=== PATIENT | male | born 1935 | race Caucasian/White ===

== ENCOUNTER → 2019-02-20 07:58 | Outpatient (CLI) | payer OTHER | END | disposition home or self-care (01) | LOC: LAB 07:58 | DX: B96.89 Other specified bacterial agents as the cause of diseases classified elsewhere (principal); D53.8 Other specified nutritional anemias; I11.0 Hypertensive heart disease with heart failure; N36.2 Urethral caruncle; N39.0 Urinary tract infection, site not specified; E04.0 Nontoxic diffuse goiter; E78.2 Mixed hyperlipidemia; E11.9 Type 2 diabetes mellitus without complications; I11.9 Hypertensive heart disease without heart failure; R97.20 Elevated prostate specific antigen [PSA] ==

== ENCOUNTER 2019-07-07 07:20 | Outpatient (CLI) | payer OTHER | END 2019-07-07 11:09 | disposition home or self-care (01) | LOC: SONOGRAMA 07:20 | DX: R97.20 Elevated prostate specific antigen [PSA] (principal) ==

== ENCOUNTER → 2019-11-04 | Outpatient (CLI) | payer OTHER | END | disposition home or self-care (01) | LOC: RAD 13:13 | DX: J44.9 Chronic obstructive pulmonary disease, unspecified (principal); M12.88 Other specific arthropathies, not elsewhere classified, other specified site ==

== ENCOUNTER 2019-11-27 09:03 | Outpatient (CLI) | payer OTHER | END 2019-11-27 09:08 | disposition home or self-care (01) | LOC: LAB 09:03 | DX: C61 Malignant neoplasm of prostate (principal) ==

== ENCOUNTER → 2020-06-03 09:18 | Outpatient (CLI) | payer OTHER | END | disposition home or self-care (01) | LOC: LAB 09:18 | PROVIDERS: ATTEND Urology | DX: D50.1 Sideropenic dysphagia (principal); I11.0 Hypertensive heart disease with heart failure; E78.2 Mixed hyperlipidemia; N18.2 Chronic kidney disease, stage 2 (mild); E11.21 Type 2 diabetes mellitus with diabetic nephropathy; R80.8 Other proteinuria; C64.2 Malignant neoplasm of left kidney, except renal pelvis; C61 Malignant neoplasm of prostate; R31.1 Benign essential microscopic hematuria; N30.00 Acute cystitis without hematuria ==

== ENCOUNTER 2020-06-07 08:11 | Outpatient (CLI) | payer OTHER | END 2020-06-07 08:23 | disposition home or self-care (01) | LOC: MRI 08:11 | PROVIDERS: ATTEND Urology | DX: N40.1 Benign prostatic hyperplasia with lower urinary tract symptoms (principal); C64.2 Malignant neoplasm of left kidney, except renal pelvis | CPT/HCPCS: 72197; 74183; 76856; A9575 ==

== ENCOUNTER 2020-11-07 07:15 | Outpatient (CLI) | payer OTHER | END 2020-11-07 07:20 | disposition home or self-care (01) | LOC: TOM 07:15 | PROVIDERS: ATTEND Internal Medicine Gastroenterology | DX: K57.30 Diverticulosis of large intestine without perforation or abscess without bleeding (principal); Z12.11 Encounter for screening for malignant neoplasm of colon; K56.600 Partial intestinal obstruction, unspecified as to cause ==

== ENCOUNTER 2020-12-07 07:03 | Outpatient (CLI) | payer OTHER | END 2020-12-07 07:12 | disposition home or self-care (01) | LOC: LAB 07:03 | PROVIDERS: ATTEND Internal Medicine Gastroenterology | DX: D53.8 Other specified nutritional anemias (principal); D68.8 Other specified coagulation defects; E78.2 Mixed hyperlipidemia; N39.0 Urinary tract infection, site not specified; N36.2 Urethral caruncle; E55.9 Vitamin D deficiency, unspecified; E04.8 Other specified nontoxic goiter; R00.2 Palpitations; E11.9 Type 2 diabetes mellitus without complications; I10 Essential (primary) hypertension ==

== ENCOUNTER 2020-12-07 08:04 | Outpatient (CLI) | payer OTHER | END 2020-12-07 08:12 | disposition home or self-care (01) | LOC: NUCLEAR 08:04 | PROVIDERS: ATTEND Urology | DX: C61 Malignant neoplasm of prostate (principal); C64.2 Malignant neoplasm of left kidney, except renal pelvis | CPT/HCPCS: 78832; A9503 ==

== ENCOUNTER 2020-12-27 11:59 | Outpatient (CLI) | payer OTHER | END 2020-12-27 12:04 | disposition home or self-care (01) | LOC: LAB 11:59 | PROVIDERS: ATTEND Urology | DX: C61 Malignant neoplasm of prostate (principal) ==

== ENCOUNTER → 2021-02-15 07:39 | Outpatient (CLI) | payer OTHER ==
[~2021-02-15 07:39] MED LIST: ABIRATERONE AC500 MG; ALZ SR CAPLET1 EACH; DONEPEZIL HCL5 MG; FLUOROMETHOLONE5 ML; OXYBUTYNIN CHLOR5 MG; PANTOPRAZOLE SO40 MG; RAYOS5 MG; ROSUVASTATIN CAL5 MG; TOBRAMYCIN-DEXAM5 ML; TOPROL XL100 M1 PO; UROXATRAL10 MG; ZOLEDRONIC4 MG/5 ML
== END | disposition home or self-care (01) ==
LOC: LAB 07:39
PROVIDERS: ATTEND Internal Medicine
DX: C61 Malignant neoplasm of prostate (principal)

== ENCOUNTER 2021-03-18 07:27 | Inpatient (IN) | payer OTHER ==
[~2021-03-18] VITALS: Ht 172.7 cm; Wt 68.0 kg
[2021-03-18] MEDS ORDERED: TOPROL XL100 M1 PO (07:34)
--- NOTE | 2021-03-18 07:37 | NUR ---
SE RECIBE PTE ALERTA, ORIENTADO EN [place] ESFERAS. PACIENTE REFIERE LLEVAR DOS HERRERA APROXIMADAMENTE CON VOMITOS Y DOLOR ABDOMINAL INTERMITENTE.
--- NOTE | 2021-03-18 08:13 | NUR ---
PACIENTE EVALUADO POR DR. PLATT QUIEN ORDENA TRATAMIENTO. RN. Robin CASTILLO EDUCA A PTE SOBRE ORDENES MEDICAS Y REFIERE COMPRENDER. CANALIZA Y COLECTA MUESTRAS DE LABORATORIO BAJO MEDIDAS ASEPTICAS Y ADMINISTRA MEDICAMENTOS MINA ORDEN MEDICA LOS CUALES PTE AL MOMENTO NO PRESENTA REACCION ADVERSA. SE MANTIENE A PTE CON IV FLUIDS.
[2021-03-19] MEDS ORDERED: ABIRATERONE AC500 MG (13:16)
[2021-03-19] MEDS ORDERED: PANTOPRAZOLE SO40 MG (13:16)
[2021-03-19] MEDS ORDERED: ZOLEDRONIC4 MG/5 ML (13:16)
[2021-03-19] MEDS ORDERED: RAYOS5 MG (13:16)
[2021-03-19] MEDS ORDERED: OXYBUTYNIN CHLOR5 MG (13:17)
[2021-03-19] MEDS ORDERED: FLUOROMETHOLONE5 ML (13:17)
[2021-03-19] MEDS ORDERED: TOBRAMYCIN-DEXAM5 ML (13:17)
[2021-03-19] MEDS ORDERED: ROSUVASTATIN CAL5 MG (13:17)
[2021-03-19] MEDS ORDERED: DONEPEZIL HCL5 MG (13:17)
[2021-03-19] MEDS ORDERED: UROXATRAL10 MG (13:18)
[2021-03-19] MEDS ORDERED: ALZ SR CAPLET1 EACH (13:18)
== END 2021-03-30 21:12 | DRG 694 ==
LOC: ER 07:27 → SURH 11:16 → SEC-K 11:16 → SURH 14:26
PROVIDERS: ADMIT Internal Medicine Cardiovascular Disease; ATTEND Internal Medicine Cardiovascular Disease
PROC: 02HV33Z Insertion of Infusion Device into Superior Vena Cava, Percutaneous Approach (ICD-10-PCS; principal; 2021-03-19)
PROC: 0T9330Z Drainage of Right Kidney Pelvis with Drainage Device, Percutaneous Approach (ICD-10-PCS; 2021-03-19)
DX: N13.8 Other obstructive and reflux uropathy (principal); N17.8 Other acute kidney failure; C79.51 Secondary malignant neoplasm of bone; R18.8 Other ascites; N13.39 Other hydronephrosis; E11.9 Type 2 diabetes mellitus without complications; E86.0 Dehydration; E87.5 Hyperkalemia; C61 Malignant neoplasm of prostate; N18.9 Chronic kidney disease, unspecified; Z20.822 Contact with and (suspected) exposure to COVID-19; Z90.5 Acquired absence of kidney; I13.10 Hypertensive heart and chronic kidney disease without heart failure, with stage 1 through stage 4 chronic kidney disease, or unspecified chronic kidney disease; Z79.4 Long term (current) use of insulin